=== PATIENT | male | born 1985 | race Caucasian/White ===

== ENCOUNTER 2018-10-20 19:59 | Emergency (ER) | payer OTHER ==
[2018-10-20] MEDS ORDERED: Sodium Chloride 0.9% 10 ML Syringe FLUSH PRN (20:25)
[2018-10-20] MEDS ORDERED: Sodium Chloride 0.9% 2.5 ML Syringe FLUSH PRN (20:25)
--- NOTE | 2018-10-20 20:25 | EDM.PDOC ---
<Elham Clarke - Last Filed: 10/20/18 22:09> ED HPI GENERAL MEDICAL PROBLEM - General Chief Complaint: Lower Extremity Injury/Pain Stated Complaint: PT HAS BOLIS ON LEGS Time Seen by Provider: 10/20/18 20:24 Source of Information: Reports: Patient History Limitations: Reports: No Limitations - History of Present Illness INITIAL COMMENTS - FREE TEXT/NARRATIVE: HISTORY AND PHYSICAL: History of present illness: Patient is a 32-year-old male here with complaint of sore on his legs. He states they started popping up 3 days ago and having progressively gotten worse. He states he had one that he tried to pop and since developed multiple sores on both legs. Today he started not feeling well, states he felt lightheaded. Patient denies significant past medical history for IV drug use. Review of systems: As per history of present illness and below otherwise all systems reviewed and negative. Past medical history: As per history of present illness and as reviewed below otherwise noncontributory. Surgical history: As per history of present illness and as reviewed below otherwise noncontributory. Social history: No reported history of drug or alcohol abuse. Family history: As per history of present illness and as reviewed below otherwise noncontributory. Physical exam: General: Patient sitting comfortably in no acute distress and nontoxic appearing HEENT: Atraumatic, normocephalic, pupils reactive, negative for conjunctival pallor or scleral icterus, mucous membranes moist, throat clear, neck supple, nontender, trachea midline. No meningeal signs. Lungs: Clear to auscultation, breath sounds equal bilaterally, chest nontender. Heart: S1S2, regular, negative for clicks, rubs, or overt murmur. Abdomen: Soft, nondistended, nontender. Negative for masses or hepatosplenomegaly. Negative for costovertebral tenderness. No rigidity, rebound , guarding. Pelvis: Stable nontender. Genitourinary: Deferred. Rectal: 4cm large bulging perirectal abscess Extremities: There are multiple abscesses on the lower extremities. A quarter sized abscess with about 8cm of surrounding erythema to the left upper thigh, a quarter sized abscess just above the right knee with about 6cm surrounding erythema, there is a small pustular area noted just adjacent to this. Abscess on the left knee with moderate surrounding erythema. There is an abscess on the right medial knee that is open but no active drainage with mild surrounding erythema. Multiple other small abscess noted without significant sourrounding erythema. Atraumatic, negative for cords or calf pain. Neurovascular unremarkable. Neuro: Awake, alert, oriented. Cranial nerves II through XII unremarkable. Cerebellum unremarkable. Motor and sensory unremarkable throughout. Exam nonfocal. Notes: 2049 - patient is in the room shaking. A rectal temperature was taken which showed temperature of 101.3F. 2114 - Discussed in detail with Dr. Ernst with phone consult, he will consult patient in the ED. An 18 nery needle was used to make a superficial opening in the pustular area of the abscess just above the right knee. A small amount of purulent fluid was expressed and cultured. 2199 - Dr. Ernst evaluated the patient and believes he is better suited for a larger facility with infectious disease. Dr. Fontenot, [facility] ED physician, has accepted patient for transfer. Diagnostics: CBC, CMP, lactate, blood culture x 2, CT pelvis w/ contrast Therapeutics: 1L Normal Saline IV 300mg Clindamycin IV 1g Vancomycin IV Prescriptions: Impression: Perirectal abscess, leukocytosis, lower extremity abscess with cellulitis Plan: Patient accepted for transfer to [facility] Definitive disposition and diagnosis as appropriate pending reevaluation and review of above. Bilateral Knee Pain Score (Numeric/FACES): 6 - Related Data Allergies Allergy/AdvReac Type Severity Reaction Status Date / Time No Known Allergies Allergy Verified 10/20/18 20:15 Home Meds: Home Meds . [No Known Home Meds] 10/20/18 [History] Past Medical History HEENT History: Reports: Impaired Vision Cardiovascular History: Reports: None Respiratory History: Reports: None Gastrointestinal History: Reports: None Genitourinary History: Reports: None Musculoskeletal History: Reports: Fracture Other Musculoskeletal History: R arm, R leg Neurological History: Reports: None Psychiatric History: Reports: None Endocrine/Metabolic History: Reports: None Hematologic History: Reports: None Immunologic History: Reports: None Oncologic (Cancer) History: Reports: None Dermatologic History: Reports: None - Infectious Disease History Infectious Disease History: Reports: MRSA - Past Surgical History Head Surgeries/Procedures: Reports: None Social & Family History - Family History Family Medical History: Noncontributory - Tobacco Use Smoking Status *Q: Current Every Day Smoker Years of Tobacco use: 10 Packs/Tins Daily: 1 - Caffeine Use Caffeine Use: Reports: Coffee - Recreational Drug Use Recreational Drug Use: No Review of Systems - Review of Systems Review Of Systems: ROS reveals no pertinent complaints other than HPI. ED EXAM, GENERAL - Physical Exam Exam: See Below (see dictation) Course - Vital Signs Last Recorded V/S: Last Vital Signs Temp 101.2 F H 10/20/18 20:58 Pulse 100 10/20/18 21:56 Resp 18 10/20/18 21:56 BP 111/72 10/20/18 21:56 Pulse Ox 97 10/20/18 21:56 - Orders/Labs/Meds Orders: Active Orders 24 hr Category Date Time Status Notify Provider Consults [RC] ASDIRECTED Care 10/20/18 21:15 Active Consult to Physician [CONS] Stat Cons 10/20/18 21:15 Active Pelvis w Cont [CT] Stat Exams 10/20/18 20:50 Taken CULTURE BLOOD [BC] Stat Lab 10/20/18 20:32 Received CULTURE BLOOD [BC] Stat Lab 10/20/18 20:42 Received CULTURE WOUND [RM] Stat Lab 10/20/18 22:13 Ordered DRUG SCREEN, URINE [URCHEM] Stat Lab 10/20/18 21:06 Ordered Sodium Chloride 0.9% [Saline Flush] Med 10/20/18 20:25 Active 10 ml FLUSH ASDIRECTED PRN Sodium Chloride 0.9% [Saline Flush] Med 10/20/18 20:25 Active 2.5 ml FLUSH ASDIRECTED PRN Vancomycin [Vancocin] 1 gm Med 10/20/18 21:01 Active Sodium Chloride 0.9% [Normal Saline] 250 ml IV ONETIME Blood Culture x2 Reflex Set [OM.PC] Stat Oth 10/20/18 20:25 Ordered Saline Lock Insert [OM.PC] Stat Oth 10/20/18 20:25 Ordered Medication Orders Vancomycin HCl 1 gm/ Sodium (Chloride) 250 mls @ 166 mls/hr IV ONETIME ONE Stop: 10/20/18 22:31 Last Admin: 10/20/18 22:09 Dose: 166 mls/hr Sodium Chloride (Saline Flush) 10 ml FLUSH ASDIRECTED PRN PRN Reason: Keep Vein Open Last Admin: 10/20/18 22:12 Dose: 10 ml Sodium Chloride (Saline Flush) 2.5 ml FLUSH ASDIRECTED PRN PRN Reason: Keep Vein Open Last Admin: 10/20/18 22:12 Dose: 2.5 ml Labs: Laboratory Tests 10/20/18 10/20/18 10/20/18 Range/Units 20:32 20:32 20:32 WBC 16.07 H (4.0-11.0) K/uL RBC 4.42 L (4.50-5.90) M/uL Hgb 13.9 (13.0-17.0) g/dL Hct 40.1 (38.0-50.0) % MCV 90.7 (80.0-98.0) fL MCH 31.4 (27.0-32.0) pg MCHC 34.7 (31.0-37.0) g/dL RDW Std Deviation 42.1 (28.0-62.0) fl RDW Coeff of Narayan 13 (11.0-15.0) % Plt Count 312 (150-400) K/uL MPV 8.10 (7.40-12.00) fL Neut % (Auto) 82.4 H (48.0-80.0) % Lymph % (Auto) 8.0 L (16.0-40.0) % [place] % (Auto) 8.3 (0.0-15.0) % Eos % (Auto) 1.1 (0.0-7.0) % Baso % (Auto) 0.2 (0.0-1.5) % Neut # (Auto) 13.2 H (1.4-5.7) K/uL Lymph # (Auto) 1.3 (0.6-2.4) K/uL [place] # (Auto) 1.3 H (0.0-0.8) K/uL Eos # (Auto) 0.2 (0.0-0.7) K/uL Baso # (Auto) 0.0 (0.0-0.1) K/uL Nucleated RBC % 0.0 /100WBC Nucleated RBCs # 0 K/uL Lactate 0.8 (0.20-2.00) mmol/L Sodium 135 L (136-148) mmol/L Potassium 4.0 (3.5-5.1) mmol/L Chloride 101 (98-107) mmol/L Carbon Dioxide 28.8 (21.0-32.0) mmol/L BUN 13 (7.0-18.0) mg/dL Creatinine 0.9 (0.8-1.3) mg/dL Est Cr Clr Drug Dosing 120.54 mL/min Estimated GFR (MDRD) > 60.0 ml/min Glucose 100 (74-106) mg/dL Calcium 8.8 (8.5-10.1) mg/dL Total Bilirubin 0.6 (0.2-1.0) mg/dL AST 47 H (15-37) IU/L ALT 87 H (14-63) IU/L Alkaline Phosphatase 87 (46-116) U/L Total Protein 7.1 (6.4-8.2) g/dL Albumin 3.1 L (3.4-5.0) g/dL Globulin 4.0 (2.6-4.0) g/dL Albumin/Globulin Ratio 0.8 L (0.9-1.6) Meds: Medications Generic Name Dose Route Start Last Admin Trade Name Freq PRN Reason Stop Dose Admin Vancomycin HCl 1 gm/ Sodium 250 mls @ 166 mls/hr 10/20/18 21:01 10/20/18 22: 09 Chloride IV 10/20/18 22:31 166 mls/hr ONETIME ONE Administration Sodium Chloride 10 ml 10/20/18 20:25 10/20/18 22:12 Saline Flush FLUSH 10 ml ASDIRECTED PRN Administration Keep Vein Open Sodium Chloride 2.5 ml 10/20/18 20:25 10/20/18 22:12 Saline Flush FLUSH 2.5 ml ASDIRECTED PRN Administration Keep Vein Open Discontinued Medications Generic Name Dose Route Start Last Admin Trade Name Freq PRN Reason Stop Dose Admin Sodium Chloride 1,000 mls @ 999 mls/hr 10/20/18 20:54 10/20/18 21:05 Normal Saline IV 10/20/18 21:54 999 mls/hr STAT ONE Administration Clindamycin Phosphate 300 mg/ 50 mls @ 150 mls/hr 10/20/18 21:01 10/20/18 21: 18 Premix IV 10/20/18 21:20 150 mls/hr ONETIME ONE Administration Iopamidol 100 ml 10/20/18 21:35 10/20/18 21:45 Isovue-370 (76%) IVPUSH 10/20/18 21:36 100 ml ONETIME ONE Administration Ondansetron HCl 8 mg 10/20/18 21:46 10/20/18 21:53 Zofran IVPUSH 10/20/18 21:47 8 mg ONETIME ONE Administration Departure - Departure Time of Disposition: 22:12 Disposition: DC/Tfer to Acute Hospital 02 Condition: Fair Clinical Impression: Perirectal abscess, Leukocytosis - Discharge Information Referrals: PCP,None [Primary Care Provider] - Forms: ED Department Discharge <Victor Hugo Mayorga - Last Filed: 10/20/18 22:16> ED HPI GENERAL MEDICAL PROBLEM - History of Present Illness INITIAL COMMENTS - FREE TEXT/NARRATIVE: I have Seen and examined the patient And agree with the above, Dr. Ernst was consulted and in ER to evaluate the patient, he felt patient should be transferred to a larger facility, i have contacted Dr. Fontenot in the ER at [facility] whom has graciously accepted care for the patient
[2018-10-20] MEDS ORDERED: Sodium Chloride 0.9% 1,000 ML IV ONE (20:54)
[2018-10-20] MEDS ORDERED: Clindamycin Phosphate in D5W 300 MG in Premix Bag 1 BAG IV ONE ×2 (21:01)
[2018-10-20 21:14] LABS: CHLORIDE,CL 101 mmol/L (98-107); SODIUM,NA 135 mmol/L (136-148)
[2018-10-20] MEDS ORDERED: Iopamidol 755 Mg/ML 100 ML Bottle IVPUSH ONE (21:35)
[2018-10-20] MEDS ORDERED: Ondansetron 4 MG/2 ML SDV IVPUSH ONE (21:46)
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
--- NOTE | 2018-10-20 22:27 | CT ---
INDICATION: Perianal abscess. TECHNIQUE: After the intravenous administration of contrast, axial images were acquired through the pelvis with sagittal and coronal reconstructions. COMPARISON: None. FINDINGS: Mild perianal soft tissue swelling with a subtle rim enhancing fluid collection posteriorly, measuring 1.2 x 1.5 x 2 cm. This is consistent with a perirectal abscess. No other significant findings. IMPRESSION: Small perirectal abscess as noted above. Dictated by John Pelaez MD @ 10/20/2018 10:25:10 PM Please note that all CT scans at this facility use dose modulation, iterative reconstruction, and/or weight-based dosing when appropriate to reduce radiation dose to as low as reasonably achievable. Dictated by: John Pelaez MD @ 10/20/2018 22:25:20 (Electronically Signed)
[2018-10-20] MEDS ORDERED: Sodium Chloride 0.9% 1,000 ML IV SCH (22:50)
== END 2018-10-20 23:30 ==
LOC: MW.ED 19:59 → EEVIPCON 19:59 → MW.ED 22:15
DX: L02.415 Cutaneous abscess of right lower limb (principal); L02.416 Cutaneous abscess of left lower limb; K61.0 Anal abscess; L03.116 Cellulitis of left lower limb; L03.115 Cellulitis of right lower limb; D72.829 Elevated white blood cell count, unspecified; F17.210 Nicotine dependence, cigarettes, uncomplicated
CPT/HCPCS: 10060; 36415; 72193; 80053; 83605; 85025; 87040; 87070; 96365; 96367; 96375; 99285; J2405; J3370; J3490; J7040; J7050; Q9967; 87077; 87186; 99284

== ENCOUNTER 2018-10-22 19:41 | Emergency (ER) | payer OTHER ==
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
[2018-10-22] MEDS ORDERED: Sulfamethoxazole/Trimethoprim 800-160 MG Tab PO ONE (20:20)
== END 2018-10-22 20:45 | disposition home or self-care (01) ==
LOC: MW.ED 19:41
DX: Z48.817 Encounter for surgical aftercare following surgery on the skin and subcutaneous tissue (principal)
CPT/HCPCS: 99282; A9270